=== PATIENT | female | born 1980 | race Caucasian/White ===

== ENCOUNTER 2016-08-05 17:08 | Emergency (ER) | payer OTHER ==
[~2016-08-05] VITALS: Ht 165.1 cm; Wt 66.2 kg
[~2016-08-05 17:08] MED LIST: ELAVIL50 MG PO; IBUPROFEN800 MG PO; LEXAPRO20 MG PO; NOHOMEMEDS; WELLBUTRIN SR150 MG PO
[2016-08-05 18:03] LABS: HEMATOCRIT 41.4 % (36.0-46.0); MCHC 34.8 G/DL (30.0-36.0); MCV 83.5 FL (83-99); PLATELET COUNT 265 K/uL (156-360); RBC DIS.WIDTH-CV 12.2 % (11.8-14.6); RED BLOOD COUNT 4.96 M/uL (3.80-5.20); WHITE BLOOD COUNT 7.5 K/uL (4.1-10.2)
[2016-08-05 18:18] LABS: CHLORIDE 105 mEq/L (99-109); POTASSIUM 3.7 mEq/L (3.7-5.4); SODIUM 135 mEq/L (136-147)
[2016-08-05 18:20] LABS: GLUCOSE 88 mg/dL (70-99)
[2016-08-05 18:21] LABS: ANION GAP 9 MEQ/L (2-14)
[2016-08-05 18:22] LABS: TOTAL BILIRUBIN 0.6 mg/dL (0.0-1.0)
[2016-08-05 18:23] LABS: ALKALINE PHOSPHATASE 35 IU/L (3-129)
[2016-08-05 18:24] LABS: GFR ESTIMATE (CALCULATED) > 59 mL/min/
[2016-08-05 18:25] LABS: UREA NITROGEN (BUN) 9 mg/dL (9-23)
[2016-08-05 18:50] LABS: QUANTITATIVE HCG 162295.2 MIU/ML
[2016-08-05 19:08] LABS: ADD MIUA? NO; BILIRUBIN NEGATIVE; BLOOD NEGATIVE; COLOR YELLOW ((YELLOW)); GLUCOSE (STRIP) NEGATIVE; KETONES 80; LEUKOCYTES NEGATIVE; NITRITE NEGATIVE; PROTEIN (STRIP) 30; SPECIFIC GRAVITY 1.025 (1.000-1.030); UCUL ADDED? NO; UROBILINOGEN 0.2 MG/DL (0.2-1.0)
[2016-08-05] MEDS ORDERED: ZOFRAN4 MG PO (20:16)
[2016-08-05 20:31] VITALS: BP 110/76
== END 2016-08-05 20:32 | disposition home or self-care (01) ==
LOC: EME 17:08
DX: O21.9 Vomiting of pregnancy, unspecified (principal); Z3A.01 Less than 8 weeks gestation of pregnancy; Z87.891 Personal history of nicotine dependence
CPT/HCPCS: 76801; 80053; 81003; 84702; 85027; 99281; 99284; J2405; J7030

== ENCOUNTER 2017-03-19 09:05 | Inpatient (IN) | payer OTHER ==
[~2017-03-19] VITALS: Ht 165.1 cm; Wt 90.2 kg
[2017-03-19] VITALS (18 sets, daily range): BP systolic 97–139; BP diastolic 52–77
[~2017-03-19 09:05] MED LIST changes: +ZOFRAN4 MG PO
[2017-03-19 10:11] LABS: EOSINOPHIL (%) 0.9 % (0-5); EOSINOPHIL COUNT 0.1 K/uL (0-0.3); HEMATOCRIT 36.1 % (36.0-46.0); IMMATURE GRANULOCYTE (%) 0.7 % (0.0-0.7); IMMATURE GRANULOCYTE COUNT 0.1 K/uL; INSTRUMENT ABS NEUTROPHIL CT 8.4 K/uL; LYMPHOCYTE COUNT 1.4 K/uL (1.0-2.8); MCH 28.9 PG (29.0-34.0); MCHC 34.1 G/DL (30.0-36.0); MCV 84.7 FL (83-99); MEAN PLAT.VOLUME 11.2 uM^3 (9.5-12.4); MONOCYTE (%) 6.1 % (3-12); MONOCYTE COUNT 0.7 K/uL (0-0.8); NEUTROPHIL (%) 78.9 % (45-76); NEUTROPHIL COUNT 8.4 K/uL (1.8-6.4); PLATELET COUNT 197 K/uL (156-360); RBC DIS.WIDTH-CV 13.2 % (11.8-14.6); RBC DIS.WIDTH-SD 41.2 % (39-53); RED BLOOD COUNT 4.26 M/uL (3.80-5.20); WHITE BLOOD COUNT 10.6 K/uL (4.1-10.2)
[2017-03-19 11:30] LABS: AMPHETAMINES QUANT VALUE 0 NG/ML; BARBITUATES QUANT VALUE 0 NG/ML; BENZODIAZEPINES QUANT VALUE 0 NG/ML; BENZODIAZEPINES, URINE SCREEN Negative (200 ng/mL); MARIJUANA QUANT VALUE 0 NG/ML; OPIATES QUANTITATIVE VALUE 0 NG/ML; PHENCYCLIDINE QUANT VALUE 0 NG/ML
[2017-03-19] MEDS ORDERED: PRENATAL TABLE1 EAC3 PO (14:43)
[2017-03-20 06:54] LABS: EOSINOPHIL (%) 0.1 % (0-5); IMMATURE GRANULOCYTE (%) 0.7 % (0.0-0.7); IMMATURE GRANULOCYTE COUNT 0.1 K/uL; INSTRUMENT ABS NEUTROPHIL CT 11.1 K/uL; LYMPHOCYTE COUNT 1.4 K/uL (1.0-2.8); MCH 28.8 PG (29.0-34.0); MCHC 33.4 G/DL (30.0-36.0); MEAN PLAT.VOLUME 11.3 uM^3 (9.5-12.4); MONOCYTE (%) 6.9 % (3-12); MONOCYTE COUNT 0.9 K/uL (0-0.8); NEUTROPHIL (%) 82.2 % (45-76); NEUTROPHIL COUNT 11.1 K/uL (1.8-6.4); PLATELET COUNT 182 K/uL (156-360); RBC DIS.WIDTH-CV 13.3 % (11.8-14.6); RBC DIS.WIDTH-SD 41.5 % (39-53); RED BLOOD COUNT 3.72 M/uL (3.80-5.20); WHITE BLOOD COUNT 13.6 K/uL (4.1-10.2)
[2017-03-20 23:00] VITALS: BP 106/58
[2017-03-21 07:56] VITALS: BP 109/72
[2017-03-21] MEDS ORDERED: Tylenol Extra Streng PO (09:27)
[2017-03-21] MEDS ORDERED: IBUPROFEN800 MG PO (09:27)
== END 2017-03-21 15:21 | disposition home or self-care (01) | DRG 775 ==
LOC: LDRP-OP 09:05 → 2WEST 09:06 → LDRP-OP 04-27 09:30
PROVIDERS: Advanced Practice Midwife
PROC: 10E0XZZ Delivery of Products of Conception, External Approach (ICD-10-PCS; principal; 2017-03-19)
DX: O26.03 Excessive weight gain in pregnancy, third trimester (principal); O99.354 Diseases of the nervous system complicating childbirth; F33.9 Major depressive disorder, recurrent, unspecified; O99.324 Drug use complicating childbirth; E66.3 Overweight; M41.9 Scoliosis, unspecified; G43.909 Migraine, unspecified, not intractable, without status migrainosus; M54.5 Low back pain; M54.30 Sciatica, unspecified side; K42.9 Umbilical hernia without obstruction or gangrene; R60.9 Edema, unspecified; F41.9 Anxiety disorder, unspecified; Z68.33 Body mass index [BMI] 33.0-33.9, adult; F12.10 Cannabis abuse, uncomplicated; O26.893 Other specified pregnancy related conditions, third trimester; Z37.0 Single live birth; Z3A.39 39 weeks gestation of pregnancy; Z80.7 Family history of other malignant neoplasms of lymphoid, hematopoietic and related tissues; Z82.49 Family history of ischemic heart disease and other diseases of the circulatory system
CPT/HCPCS: 80306 90; 85025; J0595; J7120